=== PATIENT | male | born 1970 | race Caucasian/White ===

== ENCOUNTER 2017-05-01 17:31 | Observation (INO) | payer BC ==
[~2017-05-01] VITALS: Ht 190.5 cm; Wt 94.7 kg
[~2017-05-01 17:31] MED LIST: HYDR-3533 PO; IBUP600T26 PO; IBUP800 PO
[2017-05-01 17:35] VITALS: BP 187/108; PULSE 98; RESP 20; TEMP 98.7; O2SAT 98
[2017-05-01] MEDS ORDERED: ONDANSETRON HCL 4 MG/2 ML VIAL IV PUSH ONE (18:00)
[2017-05-01] MEDS ORDERED: SODIUM CHLORIDE 0.9% FLUSH 10 ML FLUSH IVF PRN (18:00)
[2017-05-01] MEDS ORDERED: ASPIRIN 81 MG CHEW TAB PO ONE (18:00)
--- NOTE | 2017-05-01 18:02 | PD ---
HPI Chief Complaint: Chest Pain Time Seen by Provider: 17:52 Travel History International Travel<30 days: No Contact w/Intl Traveler<30days: No Traveled to known affect area: No History of Present Illness HPI Patient comes in complaining of sudden onset left-sided chest pain while walking to the fridge. Describes pain as a sharp stabbing pain in his left side with associated shortness of breath, diaphoresis, nausea, vomiting, and headache. Patient denies any cardiac history or history of a stress test but reports cardiac disease runs his family. Patient denies doing anything for this prior coming to the emergency department. Denies anything making symptoms better or worse. Patient reports pain felt intensive enough to drop him to his knees and he feels that he may have passed out briefly but is uncertain. Denies any recent travel, surgeries, or illnesses. Denies any drug use. Denies any radiation of pain. PFSH Past Medical History Medical History: Denies Significant Hx Diminished Hearing: No Immunizations Current: Yes Tetanus Vaccination: Unknown Past Surgical History Cholecystectomy: Yes (2000) Other Surgery: Yes (INGROWN TOENAIL REMOVAL. ORTHOSCOPIC KNEE SURGERY) Social History Alcohol Use: Yes (he did) Tobacco Use: No Substance Use: No Allergies-Medications (Allergen,Severity, Reaction): Coded Allergies: morphine (Unverified Allergy, Severe, 05/01/17) STATES IT INCREASED PAIN INSTEAD OF DECREASES PAIN penicillin G (Unverified Allergy, Severe, Nausea/Vomiting, 05/01/17) Reported Meds & Prescriptions Reported Meds & Active Scripts Active No Active Prescriptions or Reported Medications Review of Systems Except as stated in HPI: all other systems reviewed are Neg Physical Exam Narrative GENERAL: Well-developed, overly nourished, in mild distress, and non-ill appearing. SKIN: Focused skin assessment warm and dry. HEAD: Atraumatic. Normocephalic. EYES: Pupils equal and round. EOMI. No scleral icterus. No injection or drainage. ENT: No nasal bleeding or discharge. Mucous membranes pink and moist. NECK: Trachea midline. No JVD. Supple. No nuclear rigidity. CARDIOVASCULAR: Regular rate and rhythm. No murmur appreciated. RESPIRATORY: No accessory muscle use. No respiratory distress. Clear to auscultation. Breath sounds equal bilaterally. GASTROINTESTINAL: Abdomen soft, non-tender, nondistended, and no guarding. Hepatic and splenic margins not palpable. Normal bowel sounds 4. No pulsatile mass. MUSCULOSKELETAL: No obvious deformities. No clubbing. No cyanosis. No edema. Full range of motion. NEUROLOGICAL: Awake and alert. No obvious cranial nerve deficits. Motor grossly within normal limits. Normal speech. PSYCHIATRIC: Appropriate mood and affect; insight and judgment normal. Data Data Last Documented VS Vital Signs Date Time Temp Pulse Resp B/P (MAP) Pulse Ox O2 Delivery O2 Flow Rate FiO2 05/01/17 18:37 79 16 120/75 (90) 98 Nasal Cannula 2.00 05/01/17 17:35 98.7 Orders Orders Electrocardiogram (05/01/17 17:55) Basic Metabolic Panel (Bmp) (05/01/17 17:55) Ckmb (Isoenzyme) Profile (05/01/17 17:55) Complete Blood Count With Diff (05/01/17 17:55) Magnesium (Mg) (05/01/17 17:55) Prothrombin Time / Inr (Pt) (05/01/17 17:55) Act Partial Throm Time (Ptt) (05/01/17 17:55) Troponin I (05/01/17 17:55) Chest, Single Ap (05/01/17 17:55) Ecg Monitoring (05/01/17 17:55) Bilateral Bp Monitoring (05/01/17 17:55) Iv Access Insert/Monitor (05/01/17 17:55) Oximetry (05/01/17 17:55) Oxygen Administration (05/01/17 17:55) Aspirin Chew (Aspirin Chew) (05/01/17 18:00) Sodium Chloride 0.9% Flush (Ns Flush) (05/01/17 18:00) Nitroglycerin Sl (Nitrostat Sl) (05/01/17 18:00) Ondansetron Inj (Zofran Inj) (05/01/17 18:00) Ct Pulmonary Angiogram (05/01/17 ) CKMB (05/01/17 18:10) CKMB% (05/01/17 18:10) Hepatic Functional Panel (05/01/17 18:10) Lipase (05/01/17 18:10) Iohexol 350 Inj (Omnipaque 350 Inj) (05/01/17 19:09) Admit Order (Ed Use Only) (05/01/17 19:59) Labs Laboratory Tests Test 05/01/17 18:10 White Blood Count 5.4 TH/MM3 Red Blood Count 5.42 MIL/MM3 Hemoglobin 14.9 GM/DL Hematocrit 45.7 % Mean Corpuscular Volume 84.3 FL Mean Corpuscular Hemoglobin 27.6 PG Mean Corpuscular Hemoglobin Concent 32.7 % Red Cell Distribution Width 13.1 % Platelet Count 243 TH/MM3 Mean Platelet Volume 8.1 FL Neutrophils (%) (Auto) 50.1 % Lymphocytes (%) (Auto) 38.0 % Monocytes (%) (Auto) 8.4 % Eosinophils (%) (Auto) 2.8 % Basophils (%) (Auto) 0.7 % Neutrophils # (Auto) 2.8 TH/MM3 Lymphocytes # (Auto) 2.0 TH/MM3 Monocytes # (Auto) 0.4 TH/MM3 Eosinophils # (Auto) 0.1 TH/MM3 Basophils # (Auto) 0.0 TH/MM3 CBC Comment DIFF FINAL Differential Comment Prothrombin Time 10.1 SEC Prothromb Time International Ratio 1.0 RATIO Activated Partial Thromboplast Time 26.1 SEC Blood Urea Nitrogen 13 MG/DL Creatinine 0.98 MG/DL Random Glucose 104 MG/DL Total Protein 7.8 GM/DL Albumin 3.8 GM/DL Calcium Level 8.9 MG/DL Magnesium Level 2.4 MG/DL Alkaline Phosphatase 79 U/L Aspartate Amino Transf (AST/SGOT) 15 U/L Alanine Aminotransferase (ALT/SGPT) 28 U/L Total Bilirubin 0.5 MG/DL Direct Bilirubin 0.1 MG/DL Sodium Level 136 MEQ/L Potassium Level 3.5 MEQ/L Chloride Level 103 MEQ/L Carbon Dioxide Level 25.5 MEQ/L Anion Gap 8 MEQ/L Estimat Glomerular Filtration Rate 82 ML/MIN Indirect Bilirubin 0.4 MG/DL Total Creatine Kinase 146 U/L Creatine Kinase MB 1.3 NG/ML Troponin I LESS THAN 0.02 NG/ML Lipase 262 U/L MDM Medical Decision Making Medical Screen Exam Complete: Yes Emergency Medical Condition: Yes Interpretation(s) EKG reviewed by Dr. Bain shows sinus rhythm with ventricular rate of 88. No STEMI. Last Impressions Chest X-Ray 05/01/17 1584 Signed Impressions: Service Date/Time: Monday, May 01, 2017 18:13 - CONCLUSION: Normal examination. Cal A. Sevigny, MD CT Angiography 05/01/17 0000 Signed Impressions: Service Date/Time: Monday, May 01, 2017 19:00 - CONCLUSION: Normal examination. Cal Power MD Differential Diagnosis Acute coronary syndrome, PE, metabolic disturbance, pneumothorax, pneumonia, arrhythmia Narrative Course Patient was seen and examined. Initial laboratory and radiological studies were ordered. Patient was given 160 mg of aspirin and 3 nitroglycerin sublingually, which alleviate his pain. Discussed all findings and plan care of patient was agreeable for admission. All questions were answered. Discussed patient with Dr. Bain, who saw and evaluated the patient is in agreement with plan of care and disposition. Discussed patient with hospitalist who is agreeable to admit the patient to the chest pain center. Patient remained stable throughout ED course. Physician Communication Physician Communication [address] Arambula, who is agreeable to admit the patient chest pain center. Diagnosis Primary Impression: Chest pain Qualified Codes: R07.9 - Chest pain, unspecified Admitting Information Admitting Physician Requests: Observation Scripts No Active Prescriptions or Reported Meds Condition: Stable Nahum Ferguson May 01, 2017 18:02
[2017-05-01] MEDS: NITROGLYCERIN 0.4 MG SL 25 TABS/BTL SL SCH ×3 (18:07→18:37)
[2017-05-01 18:18] LABS: AUTOMATED NEUTROPHIL # 2.8 TH/MM3 (1.8-7.7); BASOPHIL % 0.7 % (0.0-2.0); EOSINOPHIL # 0.1 TH/MM3 (0-0.4); EOSINOPHIL % 2.8 % (0.0-4.0); HEMATOCRIT 45.7 % (39.0-51.0); HEMOGLOBIN 14.9 GM/DL (13.0-17.0); MEAN CELL VOLUME 84.3 FL (80.0-100.0); MEAN CORPUSCULAR HEMOGLOBIN 27.6 PG (27.0-34.0); MEAN CORPUSCULAR HGB CONC 32.7 % (32.0-36.0); MEAN PLATELET VOLUME 8.1 FL (7.0-11.0); MONO % 8.4 % (0.0-8.0); MONOCYTE # 0.4 TH/MM3 (0-0.9); NEUT % 50.1 % (16.0-70.0); PLATELET COUNT 243 TH/MM3 (150-450); RED BLOOD COUNT 5.42 MIL/MM3 (4.50-5.90); RED CELL DISTRIBUTION WIDTH 13.1 % (11.6-17.2); WHITE BLOOD COUNT 5.4 TH/MM3 (4.0-11.0)
[2017-05-01 18:29] LABS: CHLORIDE 103 MEQ/L (98-107); SODIUM (NA) 136 MEQ/L (136-145)
[2017-05-01 18:32] LABS: BICARBONATE 25.5 MEQ/L (21.0-32.0); BLOOD UREA NITROGEN 13 MG/DL (7-18); CALCIUM 8.9 MG/DL (8.5-10.1); GLUCOSE,RANDOM 104 MG/DL (74-106); MAGNESIUM 2.4 MG/DL (1.5-2.5)
[2017-05-01 18:35] LABS: PROTHROMBIN TIME - PATIENT 10.1 SEC (9.8-11.6)
[2017-05-01 18:36] VITALS: RESP 16; O2SAT 97
[2017-05-01 18:36] LABS: CREATININE 0.98 MG/DL (0.60-1.30); GLOMERULAR FILTRATION RATE 82 ML/MIN (>89)
[2017-05-01 18:37] VITALS: BP 120/75; PULSE 79; RESP 16; O2SAT 98
[2017-05-01 18:40] LABS: TROPONIN I LESS THAN 0.02 NG/ML (0.02-0.05)
[2017-05-01 18:47] LABS: ALBUMIN 3.8 GM/DL (3.4-5.0); LIPASE 262 U/L (73-393)
[2017-05-01 18:50] LABS: ALT (GPT) 28 U/L (12-78); AST (GOT) 15 U/L (15-37)
[2017-05-01 18:51] LABS: TOTAL PROTEIN 7.8 GM/DL (6.4-8.2)
[2017-05-01 18:52] LABS: TOTAL BILIRUBIN ADULT 0.5 MG/DL (0.2-1.0)
[2017-05-01 18:53] LABS: ALKALINE PHOSPHATASE 79 U/L (45-117)
[2017-05-01 18:55] LABS: DIRECT BILIRUBIN ADULT 0.1 MG/DL (0.0-0.2); INDIRECT BILIRUBIN 0.4 MG/DL (0.0-0.8)
--- NOTE | 2017-05-01 19:02 | RADRPT ---
EXAM DATE/TIME: 05/01/2017 18:13 [facility] COMPARISON: CHEST SINGLE AP, January 01, 2014, 9:40. INDICATIONS : Chest pain. MEDICAL HISTORY : None. SURGICAL HISTORY : None. ENCOUNTER: Initial ACUITY: 1 day PAIN SCORE: 10/10 LOCATION: Bilateral chest FINDINGS: A single view of the chest demonstrates the lungs to be symmetrically aerated without evidence of mas s, infiltrate or effusion. The cardiomediastinal contours are unremarkable. Osseous structures are intact. CONCLUSION: Normal examination. Cal Power MD on May 01, 2017 at 18:59 Board Certified Radiologist. This report was verified electronically.
[2017-05-01] MEDS ORDERED: IOHEXOL 350 MG/ML 10 ML VIAL (for RAD DIAG) IVCONTRAST ONE (19:09)
--- NOTE | 2017-05-01 19:20 | RADRPT ---
EXAM DATE/TIME: 05/01/2017 19:00 [facility] COMPARISON: No previous studies available for comparison. INDICATIONS : Sternal chest pain with syncopal episode. IV CONTRAST: 70 cc Omnipaque 350 (iohexol) IV RADIATION DOSE: 18.80 CTDIvol (mGy) MEDICAL HISTORY : None SURGICAL HISTORY : None. ENCOUNTER: Initial ACUITY: 1 day PAIN SCALE: 10/10 LOCATION: Bilateral chest TECHNIQUE: Volumetric scanning of the chest was performed using a pulmonary embolism protocol MIP images were re constructed. Using automated exposure control and adjustment of the mA and/or kV according to patien t size, radiation dose was kept as low as reasonably achievable to obtain optimal diagnostic quality images. DICOM format image data is available electronically for review and comparison. Follow-up recommendations for detected pulmonary nodules are based at a minimum on nodule size and pa tient risk factors according to Fleischner Society Guidelines. FINDINGS: PULMONARY ARTERIES: No filling defects are seen in the pulmonary arteries through the segmental level. LUNGS: There is no consolidation or pneumothorax . No concerning pulmonary nodule is visualized. PLEURAE: There is no pleural thickening or pleural effusion. MEDIASTINUM: There is good visualization of the great vessels of the middle mediastinum. No evidence of mediastin al or hilar adenopathy/mass. MUSCULOSKELETAL: Within normal limits for patient age. MISCELLANEOUS: The visualized upper abdominal organs demonstrate no acute abnormality. CONCLUSION: Normal examination. Cal Power MD on May 01, 2017 at 19:17 Board Certified Radiologist. This report was verified electronically.
--- NOTE | 2017-05-01 19:49 | PD ---
Data Data Last Documented VS Vital Signs Date Time Temp Pulse Resp B/P (MAP) Pulse Ox O2 Delivery O2 Flow Rate FiO2 05/01/17 18:37 79 16 120/75 (90) 98 Nasal Cannula 2.00 05/01/17 17:35 98.7 Orders Orders Electrocardiogram (05/01/17 17:55) Basic Metabolic Panel (Bmp) (05/01/17 17:55) Ckmb (Isoenzyme) Profile (05/01/17 17:55) Complete Blood Count With Diff (05/01/17 17:55) Magnesium (Mg) (05/01/17 17:55) Prothrombin Time / Inr (Pt) (05/01/17 17:55) Act Partial Throm Time (Ptt) (05/01/17 17:55) Troponin I (05/01/17 17:55) Chest, Single Ap (05/01/17 17:55) Ecg Monitoring (05/01/17 17:55) Bilateral Bp Monitoring (05/01/17 17:55) Iv Access Insert/Monitor (05/01/17 17:55) Oximetry (05/01/17 17:55) Oxygen Administration (05/01/17 17:55) Aspirin Chew (Aspirin Chew) (05/01/17 18:00) Sodium Chloride 0.9% Flush (Ns Flush) (05/01/17 18:00) Nitroglycerin Sl (Nitrostat Sl) (05/01/17 18:00) Ondansetron Inj (Zofran Inj) (05/01/17 18:00) Ct Pulmonary Angiogram (05/01/17 ) CKMB (05/01/17 18:10) CKMB% (05/01/17 18:10) Hepatic Functional Panel (05/01/17 18:10) Lipase (05/01/17 18:10) Iohexol 350 Inj (Omnipaque 350 Inj) (05/01/17 19:09) Labs Laboratory Tests Test 05/01/17 18:10 White Blood Count 5.4 TH/MM3 Red Blood Count 5.42 MIL/MM3 Hemoglobin 14.9 GM/DL Hematocrit 45.7 % Mean Corpuscular Volume 84.3 FL Mean Corpuscular Hemoglobin 27.6 PG Mean Corpuscular Hemoglobin Concent 32.7 % Red Cell Distribution Width 13.1 % Platelet Count 243 TH/MM3 Mean Platelet Volume 8.1 FL Neutrophils (%) (Auto) 50.1 % Lymphocytes (%) (Auto) 38.0 % Monocytes (%) (Auto) 8.4 % Eosinophils (%) (Auto) 2.8 % Basophils (%) (Auto) 0.7 % Neutrophils # (Auto) 2.8 TH/MM3 Lymphocytes # (Auto) 2.0 TH/MM3 Monocytes # (Auto) 0.4 TH/MM3 Eosinophils # (Auto) 0.1 TH/MM3 Basophils # (Auto) 0.0 TH/MM3 CBC Comment DIFF FINAL Differential Comment Prothrombin Time 10.1 SEC Prothromb Time International Ratio 1.0 RATIO Activated Partial Thromboplast Time 26.1 SEC Blood Urea Nitrogen 13 MG/DL Creatinine 0.98 MG/DL Random Glucose 104 MG/DL Total Protein 7.8 GM/DL Albumin 3.8 GM/DL Calcium Level 8.9 MG/DL Magnesium Level 2.4 MG/DL Alkaline Phosphatase 79 U/L Aspartate Amino Transf (AST/SGOT) 15 U/L Alanine Aminotransferase (ALT/SGPT) 28 U/L Total Bilirubin 0.5 MG/DL Direct Bilirubin 0.1 MG/DL Sodium Level 136 MEQ/L Potassium Level 3.5 MEQ/L Chloride Level 103 MEQ/L Carbon Dioxide Level 25.5 MEQ/L Anion Gap 8 MEQ/L Estimat Glomerular Filtration Rate 82 ML/MIN Indirect Bilirubin 0.4 MG/DL Total Creatine Kinase 146 U/L Creatine Kinase MB 1.3 NG/ML Troponin I LESS THAN 0.02 NG/ML Lipase 262 U/L MDM Supervised Visit with [facility]: Yes Narrative Course The history, exam, and medical decision-making in the associated mid-level provider note were completed with my assistance. I reviewed and agree with the findings presented. I attest that I had a [id number] encounter with the patient on the same day, and personally performed and documented my assessment and findings in the medical record. *My assessment and Findings: 46-year-old man, abrupt onset of chest pain this afternoon. Denies history of previous similar symptoms. Symptoms seem to be epigastric or abdominal in nature. Patient relates into his retrosternal chest. Denies any history of heart disease. Heart has his gallbladder taken out. Denies any GERD or reflux. Is a little bit diaphoretic. Appears uncomfortable due to the pain. Otherwise benign exam. Reviewed EKG, no evidence of acute ischemia. Initial workup including CT pulmonary injury and is all negative. At this point, patient is 46 years old, low risk for ACS. Plan serial cardiac enzymes, chest pain Center. Scripts No Active Prescriptions or Reported Meds Cal Bain MD May 01, 2017 19:49
[2017-05-01] MEDS ORDERED: SODIUM CHLORIDE 0.9% FLUSH 10 ML FLUSH IV FLUSH PRN ×2 (20:15)
[2017-05-01] MEDS: SODIUM CHLORIDE 0.9% FLUSH 10 ML FLUSH IV FLUSH SCH (20:58)
[2017-05-01 20:59] VITALS: BP 129/64; PULSE 65; RESP 18; O2SAT 97
[2017-05-01] MEDS ORDERED: SODIUM CHLORIDE 0.9% FLUSH 10 ML FLUSH IV FLUSH SCH (21:00)
[2017-05-01 21:26] LABS: TROPONIN I LESS THAN 0.02 NG/ML (0.02-0.05)
[2017-05-01 21:30] VITALS: BP 136/75; PULSE 70; PULSE 74; RESP 20; TEMP 96.2; O2SAT 98
[2017-05-01 21:32] VITALS: BP 130/80
[2017-05-02] VITALS: BP 127/89; PULSE 73; RESP 18; TEMP 96.3; O2SAT 97
[2017-05-02 00:45] VITALS: O2SAT 97
[2017-05-02 01:22] LABS: TROPONIN I LESS THAN 0.02 NG/ML (0.02-0.05)
[2017-05-02 04:00] VITALS: BP 133/93; PULSE 72; RESP 18; TEMP 97.1; O2SAT 97
[2017-05-02] MEDS: SODIUM CHLORIDE 0.9% FLUSH 10 ML FLUSH IV FLUSH SCH (07:58)
[2017-05-02 08:00] VITALS: BP 149/94; PULSE 81; RESP 18; TEMP 96.9; O2SAT 98
--- NOTE | 2017-05-02 09:07 | HHI.HP ---
[facility] Service [facility] Primary Care Physician Cee Loja, [facility]-Software Test Manager Admission Diagnosis Chest pain Diagnoses: Chief Complaint: Chest pain Travel History International Travel<30 Days: No Contact w/Intl Traveler <30 Da: No Traveled to Known Affected Are: No History of Present Illness Written by Antoinette Bhagat, acting as scribe for Dr. Nolasco on 05/02/17 at 09:07. This is a 46-year-old male patient with no known medical history who presented to the ED with complaints of chest pain. Patient states that as he was going to open up his friend last evening he felt a sudden left-sided sharp stabbing chest pain with associated shortness of breath, nausea and vomiting and reportedly fell to his knees with questionable moment of passing out. Patient denies hitting his head. Patient states that the pain was sharp in nature, located in the middle of his chest, rated a ten out of ten on pain scale, radiated to his left arm with complaints of left arm numbness. Patient states that this pain lasted over two hours. Was relieved with nitroglycerin sublingual in the ED. Patient does also admit to some lightheadedness before falling. Denies any recent illness including fever, chills, cough, shortness of breath, abdominal pain, nausea, vomiting, diarrhea or dysuria. Patient denies ever having a cardiac history or stress test in the past. Denies any new changes in medicines. Does not take anything daily. PCP is Dr. Castellon. Denies ever having this type of pain before. Review of Systems Constitutional: DENIES: Fever, Chills Eyes: DENIES: Blurred vision Respiratory: COMPLAINS OF: Shortness of breath, DENIES: Cough Cardiovascular: COMPLAINS OF: Chest pain, DENIES: Palpitations Gastrointestinal: COMPLAINS OF: Nausea, Vomiting, DENIES: Abdominal pain, Bloody stools, Constipation, Diarrhea Musculoskeletal: DENIES: Joint pain Hematologic/lymphatic: DENIES: Bruising Psychiatric: COMPLAINS OF: Anxiety Except as stated in HPI: all other systems reviewed are Neg Past Family Social History Past Medical History Denies any medical history. Past Surgical History Cholecystectomy Ingrown toenail remover Right arthroscopic knee surgery Right ankle foot surgery. Reported Medications Denies any medications. Allergies: Coded Allergies: morphine (Unverified Allergy, Severe, 05/01/17) STATES IT INCREASED PAIN INSTEAD OF DECREASES PAIN penicillin G (Unverified Allergy, Severe, Nausea/Vomiting, 05/01/17) Active Ordered Medications Current Medications Medications (Trade) Dose Ordered Sig/Taz Route Start Time Stop Time Status Last Admin (NS Flush) 2 ml UNSCH PRN IV FLUSH 05/01/17 20:15 (NS Flush) 2 ml BID IV FLUSH 05/01/17 21:00 05/01/17 20:58 Family History Paternal medical history significant for hypertension, diabetes and hyperlipidemia. Maternal medical history significant for diabetes, hypertension and frequent passing out. Social History Denies any current or previous tobacco use. Does admit to occasional alcohol use. Denies any illicit drug use. Physical Exam Vital Signs Vital Signs Date Time Temp Pulse Resp B/P (MAP) Pulse Ox O2 Delivery O2 Flow Rate FiO2 05/02/17 04:00 97.1 72 18 133/93 (106) 97 05/02/17 00:45 97 21 05/02/17 00:00 96.3 73 18 127/89 (102) 97 05/01/17 21:32 80 17 130/80 (97) 97 05/01/17 21:30 96.2 70 20 136/75 (95) 98 05/01/17 21:30 74 05/01/17 20:59 65 18 129/64 (85) 97 Room Air 05/01/17 18:37 79 16 120/75 (90) 98 Nasal Cannula 2.00 05/01/17 18:36 16 97 Nasal Cannula 2.00 05/01/17 18:35 97 Nasal Cannula 2.00 05/01/17 17:41 16 95 Room Air 05/01/17 17:35 98.7 98 20 187/108 (134) 98 Physical Exam GENERAL: This is a well-nourished, well-developed patient, lying in bed in no apparent distress. Essential tremors SKIN: No rashes, ecchymoses or lesions. Warm and dry. HEAD: Atraumatic. Normocephalic EYES: Pupils equal round and reactive. Extraocular motions intact. No scleral icterus. No injection or drainage. ENT: Nose without bleeding, purulent drainage or septal hematoma. Throat without erythema, tonsillar hypertrophy or exudate. Uvula midline. Airway patent. NECK: Trachea midline. No JVD . Supple. CARDIOVASCULAR: Regular rate and rhythm without murmurs, gallops, or rubs. No reproducible chest pain. RESPIRATORY: Clear to auscultation. Breath sounds equal bilaterally. No wheezes , rales, or rhonchi. GASTROINTESTINAL: Abdomen soft, non-tender, nondistended. No guarding. MUSCULOSKELETAL: Extremities without clubbing, cyanosis, or edema. No joint tenderness, effusion, or edema noted. NEUROLOGICAL: Awake and alert. Cranial nerves II through XII intact. Motor and sensory grossly within normal limits. Five out of 5 muscle strength in all muscle groups. Normal speech. Laboratory Laboratory Tests Test 05/01/17 18:10 05/01/17 20:55 05/02/17 00:20 White Blood Count 5.4 Red Blood Count 5.42 Hemoglobin 14.9 Hematocrit 45.7 Mean Corpuscular Volume 84.3 Mean Corpuscular Hemoglobin 27.6 Mean Corpuscular Hemoglobin Concent 32.7 Red Cell Distribution Width 13.1 Platelet Count 243 Mean Platelet Volume 8.1 Neutrophils (%) (Auto) 50.1 Lymphocytes (%) (Auto) 38.0 Monocytes (%) (Auto) 8.4 Eosinophils (%) (Auto) 2.8 Basophils (%) (Auto) 0.7 Neutrophils # (Auto) 2.8 Lymphocytes # (Auto) 2.0 Monocytes # (Auto) 0.4 Eosinophils # (Auto) 0.1 Basophils # (Auto) 0.0 CBC Comment DIFF FINAL Differential Comment Prothrombin Time 10.1 Prothromb Time International Ratio 1.0 Activated Partial Thromboplast Time 26.1 Blood Urea Nitrogen 13 Creatinine 0.98 Random Glucose 104 Total Protein 7.8 Albumin 3.8 Calcium Level 8.9 Magnesium Level 2.4 Alkaline Phosphatase 79 Aspartate Amino Transf (AST/SGOT) 15 Alanine Aminotransferase (ALT/SGPT) 28 Total Bilirubin 0.5 Direct Bilirubin 0.1 Sodium Level 136 Potassium Level 3.5 Chloride Level 103 Carbon Dioxide Level 25.5 Anion Gap 8 Estimat Glomerular Filtration Rate 82 Indirect Bilirubin 0.4 Total Creatine Kinase 146 120 115 Creatine Kinase MB 1.3 1.2 0.9 Troponin I LESS THAN 0.02 LESS THAN 0.02 LESS THAN 0.02 Lipase 262 Result Diagram: 05/01/170 05/01/17 1810 Imaging Last Impressions Chest X-Ray 05/01/17 1755 Signed Impressions: Service Date/Time: Monday, May 01, 2017 18:13 - CONCLUSION: Normal examination. Cal Power MD CT Angiography 05/01/17 0000 Signed Impressions: Service Date/Time: Monday, May 01, 2017 19:00 - CONCLUSION: Normal examination. Cal Power MD Septic Shock Reassessment Septic shock perfusion: reassessment completed Caprini VTE Risk Assessment Caprini VTE Risk Assessment: No/Low Risk (score <= 1) Caprini Risk Assessment Model Point Value = 1 Point Value = 2 Point Value = 3 Point Value = 5 Age 41-60 Minor surgery BMI > 25 kg/m2 Swollen legs Varicose veins or History of unexplained or recurrent spontaneous Oral contraceptives or hormone replacement Sepsis (< 1 month) Serious lung disease, including pneumonia (< 1 month) Abnormal pulmonary function Acute myocardial infarction Congestive heart failure (< 1 month) History of inflammatory bowel disease Medical patient at bed rest Age 61-74 Arthroscopic surgery Major open surgery (> 45 min) Laparoscopic surgery (> 45 min) Malignancy Confined to bed (> 72 hours) Immobilizing plaster cast Central venous access Age >= 75 History of VTE Family history of VTE Factor V Leiden Prothrombin [id number] Lupus anticoagulant Anticardiolipin antibodies Elevated serum homocysteine Heparin-induced thrombocytopenia Other congenital or acquired thrombophilia Stroke (< 1 month) Elective arthroplasty Hip, pelvis, or leg fracture Acute spinal cord injury (< 1 month) Prophylaxis Regimen Total Risk Factor Score Risk Level Prophylaxis Regimen 0-1 Low Early ambulation 2 Moderate Order ONE of the following: *Sequential Compression Device (SCD) *Heparin 5000 units SQ BID 3-4 Higher Order ONE of the following medications: *Heparin 5000 units SQ TID *Enoxaparin/Lovenox 40 mg SQ daily (WT < 150 kg, CrCl > 30 mL/min) *Enoxaparin/Lovenox 30 mg SQ daily (WT < 150 kg, CrCl > 10-29 mL/min) *Enoxaparin/Lovenox 30 mg SQ BID (WT < 150 kg, CrCl > 30 mL/min) AND/OR *Sequential Compression Device (SCD) 5 or more Highest Order ONE of the following medications: *Heparin 5000 units SQ TID (Preferred with Epidurals) *Enoxaparin/Lovenox 40 mg SQ daily (WT < 150 kg, CrCl > 30 mL/min) *Enoxaparin/Lovenox 30 mg SQ daily (WT < 150 kg, CrCl > 10-29 mL/min) *Enoxaparin/Lovenox 30 mg SQ BID (WT < 150 kg, CrCl > 30 mL/min) AND *Sequential Compression Device (SCD) Assessment and Plan Problem List: (1) Chest pain ICD Code: R07.9 - Chest pain, unspecified Status: Acute Plan: Patient has been admitted to the chest pain center for observation. Serial EKGs and serial troponins have been ordered for ruling out purposes. Serial troponins are flat. EKG reviewed showing normal sinus rhythm, controlled heart rate, no ST changes to indicate any ischemia. Chest pain has not resolved. Patient is lying in bed comfortably. Patient will undergo a cardiac treadmill stress test to further rule out any possibility of ischemia. CBC and BMP reviewed, essentially unremarkable. D-dimer was elevated, CTA performed showing no evidence of PE. Chest x-ray reviewed showing normal examination. Signs are stable. Supplemental O2 as needed. Comfortable on room air. Patient is stable at this time and agreeable to the patient. *Patient attempted treadmill cardiac stress test. Within less than one minute during the test patient became lightheaded and short of breath, requesting to stop test. Will defer to a chemical cardiac stress test. Follow images. Will obtain echocardiogram and carotid ultrasounds. Patient will also have orthostatic blood pressures taken. Follow. May need to possibly consult neurology for presenting symptoms. Assessment and Plan This note was transcribed by STEPHANIE Olmstead. I, Dr. Minerva Nolasco personally performed the history, physical exam, and medical decision making; and confirmed the accuracy of the information in the transcribed note. Authenticated by Dr. Minerva Nolasco on 05/02/17 at 09:07. Patient under a cardiac nuclear stress test which showed normal wall motion and calculated EF. No fixed or reversible defects to suggest ischemia or infarction. EF 54%. Carotid ultra sounds reviewed showing no significant carotid flow limiting stenosis. CXR WNL CTA WNL. ECHOcardiogram done and reviewed showing EF 60-65%. Normal ventricular size. and Normal left ventricular systolic function. Orthostatic BPs checked and unremarkable. CBC and BMP WNL. Cardiac telemetry reviewed over the last 24 hours showing no acute events or arrhythmias. Patient will be discharged home tonight. Encouraged to return to ED if symptoms worsen. Encouraged to follow up with PCP within a week to follow up with hospitalization. Possible referral to neurologist to further work up symptoms. Patient does have a history of essential tremor and speech impediment since childhood. Patient is stable at this time and agreeable to the plan. Problem Qualifiers (1) Chest pain: Qualified Codes: R07.9 - Chest pain, unspecified Antoinette Bhagat May 02, 2017 09:07 Minerva Nolasco MD May 02, 2017 09:26
[2017-05-02 09:35] VITALS: O2SAT 97
--- NOTE | 2017-05-02 13:10 | RADRPT ---
EXAM DATE/TIME: 05/02/2017 10:52 [facility] COMPARISON: No previous studies available for comparison. INDICATIONS : Syncope. MEDICAL HISTORY : Liver disease. SURGICAL HISTORY : Knee surgery. Right foot surgery. Cholecystectomy. ENCOUNTER: Initial ACUITY: 1 day PAIN SCORE: 0/10 LOCATION: Bilateral neck PEAK SYSTOLIC VELOCITIES (cm/sec): ICA/CCA RATIO: Right: 1.4 Left: 0.9 ICA: Right: 108 Left: 81 CCA: Right: 78 Left: 94 ECA: Right: 68 Left: 80 VERTEBRAL: Right: 54 antegrade Left: 55 antegrade Elevated flow velocities and ICA/CCA ratios have been found to correlate with increased degrees of vessel stenosis, calculated as percentage of diameter relative to a normal segment of distal ICA/CCA FINDINGS: RIGHT CAROTID: No significant stenosis is visualized. The waveforms are within normal limits. LEFT CAROTID: No significant stenosis is visualized. The waveforms are within normal limits. VERTEBRAL ARTERIES: Antegrade flow is seen in both vertebral arteries. MISCELLANEOUS: None. CONCLUSION: 1. No significant carotid flow limiting stenosis. 2. Antegrade vertebral artery flow bilaterally. Deep Casanova MD on May 02, 2017 at 13:05 Board Certified Radiologist. This report was verified electronically.
--- NOTE | 2017-05-02 15:36 | RADRPT ---
EXAM DATE/TIME: 05/02/2017 12:21 [facility] COMPARISON: No previous studies available for comparison. INDICATIONS : Left chest pain with dyspnea, nausea, vomiting and headache. Angina. DOSE: 26.7 mCi Tc99m Myoview at stress. 8.7 mCi Tc99m Myoview at rest. 0.4 mg Lexiscan STRESS SYMPTOMS: Headache. EJECTION FRACTION: 54% MEDICAL HISTORY : None SURGICAL HISTORY : Cholecystectomy. ENCOUNTER: Initial ACUITY: 1 day PAIN SCALE: 8/10 LOCATION: Left chest TECHNIQUE: The patient underwent pharmacologic stress with infusion of prescribed dose. Continuous ECG tracing was monitored during stress. Gated SPECT imaging was performed after stress and conventional SPECT i maging was performed at rest. The examination was performed on a SPECT/CT scanner, both attenuation and non-corrected datasets were reviewed. FINDINGS: DISTRIBUTION: The maximum perfused segment at stress is in the anterior lateral wall. There is a some stress score of 6. PERFUSION STUDY: The pattern of perfusion at stress is within normal limits. GATED STUDY: There is intact wall motion and thickening without hypokinetic or dyskinetic segments. CONCLUSION: 1. Normal wall motion and calculated ejection fraction. 2. No fixed or reversible defects to suggest ischemia or infarction. RISK CATEGORY: Low (<1% Annual Mortality Rate) Tariq Guzman MD on May 02, 2017 at 15:30 Board Certified Radiologist. This report was verified electronically.
[2017-05-02 16:00] VITALS: BP_SYST 156; BP_SYST 157; BP_SYST 166; BP_DIAS 103; BP_DIAS 104; BP_DIAS 105; PULSE 89; RESP 18; TEMP 97.4; O2SAT 97
--- NOTE | 2017-05-02 16:17 | ECHRPT ---
Indication: CHEST PAIN CONCLUSIONS Normal left ventricular size and wall thickness. The left ventricular systolic function is normal wi th an estimated ejection fraction in the range of 60-65%. Left ventricular diastolic function parameters a re normal. BP: / HR: Rhythm: Sinus Technical Quality:Good FINDINGS LEFT VENTRICLE Normal left ventricular size and wall thickness. The left ventricular systolic function is normal wi th an estimated ejection fraction in the range of 60-65%. Left ventricular diastolic function parameters a re normal. RIGHT VENTRICLE Normal right ventricular size and systolic function. LEFT ATRIUM The left atrial size is normal. RIGHT ATRIUM The right atrial size is normal. ATRIAL SEPTUM Normal atrial septal thickness without atrial level shunting by limited color doppler interrogation. AORTA The aortic root and proximal ascending aorta are normal in size on limited imaging. MITRAL VALVE Structurally normal mitral valve. No mitral valve stenosis or regurgitation. AORTIC VALVE Trileaflet aortic valve. No aortic valve stenosis or regurgitation. TRICUSPID VALVE Structurally normal tricuspid valve. No tricuspid valve stenosis or regurgitation. PULMONARY VALVE The pulmonary valve is not well visualized. VESSELS The inferior vena cava is normal in size. PERICARDIUM No pericardial effusion. Aly Koch MD (Electronically Signed) Final Date:02 May 2017 16:16
--- NOTE | 2017-05-02 17:46 | HHI.DCPOC ---
Discharge Care Plan Diagnosis: (1) Chest pain Your Health Problems Are: Chest Pain Goals to Promote Your Health * To prevent worsening of your condition and complications * To maintain your health at the optimal level Directions to Meet Your Goals Take your medications as prescribed Follow your dietary instruction Follow activity as directed Keep your appointments as scheduled Take your immunizations and boosters as scheduled If your symptoms worsen call your PCP, if no PCP go to Urgent Care Center or Emergency Room Smoking is Dangerous to Your Health. Avoid second hand smoke Call the 24-hour hour crisis hotline for domestic abuse at Antoinette Bhagat May 02, 2017 17:45
[2017-05-02] MEDS ORDERED: REGADENOSON INJ 0.4 MG/5 ML SYR IV ONE (20:01)
--- NOTE | 2017-05-03 15:54 | EKG ---
Date Performed: 05/02/2017 Time Performed: 00:48:50 PTAGE: 46 years EKG: Sinus rhythm NORMAL ECG PREVIOUS TRACING : 05/01/2017 20.41 Since previous tracing, no significant change noted DOCTOR: Julio Dinh Interpretating Date/Time 05/03/2017 15:52:05
--- NOTE | 2017-05-03 15:54 | EKG ---
Date Performed: 05/01/2017 Time Performed: 20:41:29 PTAGE: 46 years EKG: Sinus rhythm WITH SINUS ARRHYTHMIA NORMAL ECG PREVIOUS TRACING : 05/01/2017 17.47 Since previous tracing, no significant change noted DOCTOR: Julio Dinh Interpretating Date/Time 05/03/2017 15:53:08
--- NOTE | 2017-05-03 15:55 | EKG ---
Date Performed: 05/01/2017 Time Performed: 17:47:10 PTAGE: 46 years EKG: Sinus rhythm POSSIBLE LEFT ATRIAL ENLARGEMENT BORDERLINE ECG PREVIOUS TRACING : 01/01/2014 12.16 Since previous tracing, no significant change noted DOCTOR: Julio Dinh Interpretating Date/Time 05/03/2017 15:54:40
--- NOTE | 2017-05-03 16:04 | TR ---
Date Performed: 05/02/2017 Time Performed: 12:55:14 DOCTOR: Julio Dinh DRUG LIST: CLINICAL HISTORY: REASON FOR TEST: Chest pain REASON FOR ENDING: OBSERVATION: CONCLUSION: Lexiscan stress test was performed under standard four minute protocol. Radionuclid e was injected one minute prior to ending the test. No electrocardiographic abormalities were present to suggest ischemia. Nuclear imaging and interpretation are pending. COMMENTS:
--- NOTE | 2017-05-03 16:10 | TR ---
Date Performed: 05/02/2017 Time Performed: 10:01:52 DOCTOR: Julio Dinh DRUG LIST: CLINICAL HISTORY: REASON FOR TEST: Chest pain REASON FOR ENDING: OBSERVATION: CONCLUSION: Spencer protocol attempted, patient suddenly became dizzy and lightheaded less than 1 minute into test. Belt and test stopped and patient lying down. Will defer to lexiscan.Maximum SX=944 Target HR Achieved=87.0% Maximum MW=878/92 Total Exercise Time= less than 1 min of exercise time COMMENTS: nON-DIAGNOSTC TEST DUE TO FAILURE TO REACH MAX hr
== END 2017-05-02 18:57 | disposition home or self-care (01) ==
LOC: PHEFT 17:31 → PHEDA 20:00 → PH3B 21:32
PROVIDERS: ADMIT Hospitalist; ATTEND Hospitalist
DX: R07.9 Chest pain, unspecified (principal); G25.0 Essential tremor; R47.9 Unspecified speech disturbances; R06.02 Shortness of breath; R42 Dizziness and giddiness; R11.2 Nausea with vomiting, unspecified; R20.0 Anesthesia of skin; R51 Headache; R61 Generalized hyperhidrosis; I49.9 Cardiac arrhythmia, unspecified
CPT/HCPCS: 71045; 71275; 78452; 80048; 80076; 82550; 82552; 83690; 83735; 84484; 85025; 85610; 85730; 93005; 93017; 93306; 93880; 96374; 99285; A9502; G0378; J2405; J2785; Q9967